=== PATIENT | female | born 1940 | race Caucasian/White ===

== ENCOUNTER → 2019-09-13 | Outpatient (CLI) | payer OTHER ==
--- NOTE | 2019-09-14 19:57 | PCVCIMAG ---
APPROVED REPORT Study performed: 09/13/2019 11:08:12 EXAM: Comprehensive 2D, Doppler, and color-flow Echocardiogram Patient Location: Echo lab Room #: 3Status: routine BSA: 1.65 HR: 769 bpmBP: 134/72 mmHg Rhythm: Atrial Fibrillation Other Information Study Quality: Adequate Risk Factors: Cardiac Risk Factors: HTN, Hyperlipidemia, DM Indications Atrial Fibrillation 2D Dimensions IVSd: 8.06 (7-11mm)LVOT Diam: 15.00 (18-24mm) LVDd: 36.04 mm PWd: 8.13 (7-11mm)Ascending Ao: 31.46 (22-36mm) LVDs: 21.50 (25-40mm) Left Atrium: 45.42 (27-40mm) Aortic Root: 25.43 mm LV Single Plane 4CH: 62.58 % LV Single Plane 2CH: 50.53 % Biplane EF: 57.9 % Volumes Left Atrial Volume (Systole) Single Plane 4CH: 63.77 mLSingle Plane 2CH: 52.85 mL LA ESV Index: 37.00 mL/m2 Aortic Valve AoV Peak Santhosh.: 1.47 m/s AO Peak Gr.: 8.68 mmHgLVOT Max P.41 mmHg LVOT Max V: 1.02 m/s RIZWAN Vmax: 1.30 cm2 Pulmonary Valve PV Peak Santhosh.: 1.12 m/sPV Peak Gr.: 5.02 mmHg MO End Vmax: 1.46 m/s Tricuspid Valve TR Peak Santhosh.: 2.92 m/sRAP Estimate: 7.00 mmHg TR Peak Gr.: 34.07 mmHg PA Pressure: 41.00 mmHg Left Ventricle The left ventricle is normal size. There is normal LV segmental wall motion. There is normal left ventricular wall thickness. Left ventricular systolic function is normal. The left ventricular ejection fraction is within the normal range. LVEF is 55-60%. This study is not technically sufficient to allow evaluation of the LV diastolic function due to atrial fibrillation. Right Ventricle The right ventricle is normal size. The right ventricular systolic function is normal. Atria Left atrium is mildly dilated. Right atrium is mildly dilated. Aortic Valve The aortic valve is normal in structure. No aortic regurgitation is present. There is no aortic valvular stenosis. Mitral Valve The mitral valve is normal in structure. Moderate mitral regurgitation. No evidence of mitral valve stenosis. Tricuspid Valve The tricuspid valve is normal in structure. Moderate tricuspid regurgitation. Pulmonary artery pressure is 41 mmHg. Pulmonic Valve The pulmonary valve is normal in structure. Mild pulmonic regurgitation. Great Vessels The aortic root is normal in size. The ascending aorta is normal in size. IVC is normal in size and collapses >50% with inspiration. Pericardium There is no pericardial effusion. <Conclusion> The left ventricle is normal size. LVEF is 55-60%. This study is not technically sufficient to allow evaluation of the LV diastolic function due to atrial fibrillation. The right ventricle is normal size. Left atrium is mildly dilated. Right atrium is mildly dilated. The aortic valve is normal in structure. Moderate mitral regurgitation. Moderate tricuspid regurgitation. Pulmonary artery pressure is 41 mmHg. The aortic root is normal in size. There is no pericardial effusion.
== END | disposition home or self-care (01) ==
LOC: PCVCIMAG 10:58
PROVIDERS: ATTEND Internal Medicine Cardiovascular Disease
DX: I08.8 Other rheumatic multiple valve diseases (principal); I48.91 Unspecified atrial fibrillation
CPT/HCPCS: 93306